=== PATIENT | female | born 1970 | race Caucasian/White ===

== ENCOUNTER 2017-05-16 10:47 | Emergency (ER) | payer BC ==
[2017-05-16] MEDS ORDERED: CYCLOBENZAPRINE HCL 10 MG TABLET PO ONE (11:35)
--- NOTE | 2017-05-16 11:41 | ERNOTE ---
Lower Extremity HPI - General Lower Extremities Pain: leg: right Time Seen by Provider: 05/16/17 11:20 Source: patient, family Exam Limitations: no limitations - Immun/Allergies/Home Medications Immunizations: IMMUNIZATION HX Immunizations Up to Date Yes History of Influenza Vaccine No Allergies/Adverse Reactions: Allergies Allergy/AdvReac Type Severity Reaction Status Date / Time cephalexin Allergy Verified 05/16/17 11:06 Home Medications: HOME MEDICATIONS Cyclobenzaprine HCl [Flexeril] 10 mg PO TID PRN #30 tab 05/16/17 [Last Taken Unknown] carBAMazepine [Tegretol Xr] 400 mg PO BID 05/16/17 [Last Taken Unknown] - History of Present Illness Narrative: Patient has had pain on the left side of her body for a few months. Sometimes the pain is in her legs, sometimes in her arms. Three days ago she started to have pain in her left buttock radiating down her leg. She denies any injury. her leg is also painful to touch and she is concerned that she might have a blood clot in her leg. She has taken tylenol without relieve, took ibuprofen 600mg at 09:30 without relieve. Review of Systems - Review of Systems Constitutional: Absent: recent illness, fever ENT: Absent: nose congestion, sore throat Respiratory: Absent: shortness of breath Cardiology: Absent: chest pain Gastrointestinal/Abdominal: Absent: nausea, vomiting, abdominal pain Genitourinary: Present: no symptoms reported Musculoskeletal: Present: See HPI Skin: Present: no symptoms reported Neurological: Absent: weakness, numbness - Patient's Past Medical History Patient History - Medical: No pertinent hx, Seizures - petit mal as teenager Patient History - Cardiac/Respiratory: No pertinent hx Patient History - Cancer: No Hx of Cancer Patient History - Surgical Procedures: , Hysterectomy, Urology - Social History Smoking Status: Never smoker Have you smoked in the past 12 months: No Do you dip or chew tobacco: No - Immunizations Immunizations Up to Date: Yes History of Influenza Vaccine: No Physical Exam - Physical Exam General Appearance: Present: wd/wn, alert, no apparent distress, obese Respiratory: Present: no respiratory distress, normal breath sounds, no accessory muscle use, lungs clear Cardiovascular/Chest: Present: regular rate, rhythm, no murmur Back Exam: Present: normal inspection, vertebral tenderness - lower lumbar spine and left parapsinal, other - pain on left straight leg raise Extremity Exam: Present: normal inspection, non-tender - patient reports pain on palpation of thigh, normal range of motion, no edema Neurological Exam: Present: alert, oriented, normal mood/affect, no motor/ sensory deficits Skin Exam: Present: normal color, warm/dry ED Progress - Vital Signs Patient's Vital Signs:: I have reviewed the patient's vital signs. Vital Signs: Vital Signs 05/16/17 11:03 Temperature 37.6 C H Pulse Rate 83 Respiratory 14 Rate Blood Pressure 150/101 O2 Sat by Pulse 96 Oximetry - X-Ray X-Ray #1 X-Ray: lumbosacral - disk disease Interpretation: Reviewed by me - CT/Ultrasound CT/Ultrasound Narrative: venous doppler left leg: no DVT - Progress/Reassessment Chief Complaint: Lower Extremity Pain/ Injury Progress Note-Subjective: 05/16/17 12:45 discussed test results with patient and mom Departure Clinical Impression: Sciatica of left side - Departure Disposition: Home self-care Condition: Good Instructions: Sciatica, [id number] Additional Instructions: continue your ibuprofen (200mg) three tablets every six hours as needed for pain call your doctor for follow up Referrals: Roman John DO [Primary Care Provider] - Prescriptions: Cyclobenzaprine HCl [Flexeril] 10 mg PO TID PRN #30 tab PRN Reason: MUSCLE SPASMS
[2017-05-16] MEDS ORDERED: CYCLOBENZAPRINE HCL 10 MG TABLET ONE (11:42)
[2017-05-16 12:52] VITALS: BP 141/90
== END 2017-05-16 12:51 | disposition home or self-care (01) ==
LOC: ER 10:47
DX: M54.32 Sciatica, left side (principal); R56.9 Unspecified convulsions

== ENCOUNTER 2017-07-11 06:39 | Emergency (ER) | payer BC ==
[2017-07-11] MEDS ORDERED: METHYLPREDNISOLONE SOD SUCC/PF 125 MG/2 ML VIAL IV ONE (06:44)
[2017-07-11] MEDS ORDERED: METHYLPREDNISOLONE SOD SUCC/PF 125 MG/2 ML VIAL ONE (06:48)
[2017-07-11] MEDS ORDERED: diphenhydrAMINE HCL 50 MG/ML VIAL IV ONE (07:03)
[2017-07-11] MEDS ORDERED: diphenhydrAMINE HCL 50 MG/ML VIAL ONE (07:12)
--- NOTE | 2017-07-11 07:12 | ERNOTE ---
<GarvinMichael Briceno - Last Filed: 07/11/17 08:11> Allergy Symptoms - ER Date of Service: 07/11/17 Presenting Symptoms: face swelling, throat swelling, trouble breathing Time Seen by Provider: 07/11/17 06:44 Source: patient, EMS notes reviewed Immunizations: IMMUNIZATION HX Immunizations Up to Date Yes History of Influenza Vaccine No Allergies/Adverse Reactions: Allergies cephalexin Allergy (Verified 07/11/17 06:43) Home Medications: HOME MEDICATIONS carBAMazepine [Tegretol Xr] 400 mg PO BID 05/16/17 [Last Taken Unknown] - History of Present Illness Narrative: patient c/o allergic reaction, onset last evening, thinks it may be something she has eatin Timing: Present: constant, getting worse Treatment [employer]:: by [employer] grinder, epinephrine, benadryl Location skin rash/itching: Present: facial, "redness", "hives", other - feels like throat is closing Location swelling: Present: face, lip(s), throat Severity shortness of breath: Present: moderate Severity trouble swallowing/speaking: Present: mild Identified cause?: No - unknown Modifying Factors (Improves): Reports: nothing Modifying Factors (Worsens): Reports: nothing Similar symptoms previously: Yes Review of Systems - Narrative Narrative: unremarkable - Review of Systems Constitutional: Present: See HPI, weakness EYE: Present: no symptoms reported ENT: Present: nose pain, nose congestion, throat swelling Respiratory: Present: shortness of breath Cardiology: Present: palpitations Gastrointestinal/Abdominal: Present: no symptoms reported Genitourinary: Present: no symptoms reported Musculoskeletal: Present: no symptoms reported Skin: Present: no symptoms reported Neurological: Present: no symptoms reported Endocrine: Present: no symptoms reported Hematologic/Lymphatic: Present: no symptoms reported - Narrative Narrative: unremarkable - Patient's Past Medical History Patient History - Medical: No pertinent hx, Seizures Patient History - Cardiac/Respiratory: No pertinent hx Patient History - Cancer: No Hx of Cancer Patient History - Surgical Procedures: , Hysterectomy, Urology Patient History - Other: None LMP (females 10-50): Menopausal - Family History Family History:: no untoward family reactions to anesthesia, no familial bleeding tendencies, no family history of clotting disorders, no family history of premature - Social History Living Situations: home Abuse History: No History of abuse Psych History: No pertinent hx Does anyone smoke in the home?: No Smoking Status: Former smoker Have you smoked in the past 12 months: No Do you dip or chew tobacco: No Patient requests Smoking Cessation Consult: No Initiate information on Smoking Cessation: No Alcohol Use: none Drug Use: none - Immunizations Immunizations Up to Date: Yes History of Influenza Vaccine: No Physical Exam - Physical Exam General Appearance: Present: mild distress Head Exam: Present: normal inspection, no evidence of injury Eye Exam: Normal inspection: bilateral, PERRL: bilateral, EOMI: bilateral Ears, Nose, Throat: Present: sinus pain/drainage, normal pharynx Neck: Present: normal inspection, nontender Respiratory: Present: no respiratory distress, normal breath sounds, no accessory muscle use, chest nontender, lungs clear Cardiovascular/Chest: Present: regular rate, rhythm, no murmur, normal peripheral pulses Peripheral Pulses: N=norm/S=strong/W=weak/B=bound/A=absent: Carotid (R): Normal , Carotid (L): Normal, Radial (R): Normal, Radial (L): Normal, Femoral (R): Normal, Femoral (L): Normal, Dorsalis-pedis (R): Normal, Dorsalis-pedis (L): Normal Gastrointestinal/Abdominal: Present: normal bowel sounds, nontender, nondistended, soft, no organomegaly Extremity Exam: Present: normal inspection, non-tender, normal range of motion, no edema Neurological Exam: Present: alert, oriented, normal mood/affect, no motor/ sensory deficits DTR: N=norm/NB=norm/brisk/A=abs/DD=dull/dimin/HC=hyperactive: Bicep (R): Normal , Bicep (L): Normal, Tricep (R): Normal, Tricep (L): Normal, Knee (R): Normal, Knee (L): Normal, Ankle (R): Normal, Ankle (L): Normal Skin Exam: Present: normal color, warm/dry Lymphatic Exam: Present: no adenopathy ED Progress - Vital Signs Vital Signs: Vital Signs 07/11/17 07/11/17 06:39 06:44 Temperature 37.2 C Pulse Rate 91 91 Respiratory 18 18 Rate Blood Pressure 139/80 139/77 O2 Sat by Pulse 94 96 Oximetry - Progress/Reassessment Chief Complaint: Allergic Reaction - Transfer of Care Physician Sign Out: Kulwant Ng Departure Clinical Impression: Allergic reaction Qualifiers: Encounter type: initial encounter Qualified Code(s): T78.40XA - Allergy, unspecified, initial encounter - Departure Disposition: Home self-care Condition: Good Instructions: Angioedema, [id number] Additional Instructions: call your doctor for follow up Referrals: Roman John DO [Primary Care Provider] - <Alessia Teran - Last Filed: 07/11/17 10:12> Allergy Symptoms - ER Source: patient Immunizations: IMMUNIZATION HX Immunizations Up to Date Yes History of Influenza Vaccine No - History of Present Illness Narrative: Patient states that she ate fish at a [employer] personal property for dinner last night, around 21:00 she started to feel hot, felt like her ear lobes were swollen and had hives on her neck, denies lip swelling, no throat swelling, no shortness of breath. She went to sleep, still had symptoms this morning and went to work, they called EMS Timing: Present: constant Treatment [employer]:: by precision grinder, epinephrine, benadryl Location skin rash/itching: Present: facial, "redness", "hives" Location swelling: Absent: face, lip(s), throat Identified cause?: No Physical Exam - Physical Exam General Appearance: Present: wd/wn, alert, no apparent distress Respiratory: Present: no respiratory distress, normal breath sounds, chest nontender, lungs clear Cardiovascular/Chest: Present: regular rate, rhythm Gastrointestinal/Abdominal: Present: nontender Neurological Exam: Present: alert, oriented, normal mood/affect Skin Exam: Present: normal color, warm/dry. Absent: skin rash ED Progress - Results and Orders Patient's Lab Results:: I have reviewed the patient's lab results. - Vital Signs Patient's Vital Signs:: I have reviewed the patient's vital signs. Vital Signs: Vital Signs 07/11/17 07/11/17 07/11/17 06:39 06:44 07:14 Temperature 37.2 C Pulse Rate 91 91 82 Respiratory 18 18 12 Rate Blood Pressure 139/80 139/77 132/70 O2 Sat by Pulse 94 96 18 L Oximetry 07/11/17 07/11/17 07/11/17 07:39 07:51 08:10 Temperature 36.5 C Pulse Rate 85 78 83 Respiratory 20 22 H 19 Rate Blood Pressure 124/69 137/71 115/62 O2 Sat by Pulse 91 97 92 Oximetry 07/11/17 07/11/17 08:40 09:01 Temperature Pulse Rate 74 87 Respiratory 20 22 H Rate Blood Pressure 124/69 125/68 O2 Sat by Pulse 98 90 Oximetry - EKG EKG: NSR, RBBB - incomplete, other - no prior for comparison EKG read: Interp. by me - Progress/Reassessment Progress Note-Subjective: 07/11/17 09:22 Patient states that she has chest pressure unchanged since her symptoms started , had EKG and CXR, will get lab 07/11/17 10:08 discussed test results with patient, feeling well now, wants to go back to work
[2017-07-11 09:35] LABS: Hematocrit 37.5 % (37.0-47.0); Hemoglobin 12.7 gm/dL (12.5-16.0); Mean Cell Volume 88.9 fl (78-100); Mean Corpuscular Hemoglobin 30.1 pg (27-31); Mean Corpuscular Hgb Conc 33.9 g/dl (32-36); Mean Platelet Volume 9.5 fl (6.0-9.5); Neutrophil % 93.6 % (42-75.0); Platelet Count 193 K/mm3 (150-450); Red Blood Count 4.22 M/mm3 (4.2-5.4); Red Cell Distribution Width 11.7 % (11.5-14.0); White Blood Count 9.6 K/mm3 (4.0-10.5)
[2017-07-11 09:52] LABS: ALT 31 U/L (19-67); AST 20 U/L (0-48); Albumin * 3.8 gm/dl (3.4-5.0); Alkaline Phosphatase * 96 U/L (50-170); Anion Gap 12.6 mmol/L (6.8-13.8); BUN/Creatinine Ratio 22.1 (9.0-21.6); Bilirubin, Total 0.2 mg/dL (0.0-1.1); Blood Urea Nitrogen 17 mg/dL (3-23); Ca. Corrected For Albumin 8.3 mg/dL (8.4-10.2); Calcium * 8.5 mg/dL (7.9-10.9); Carbon Dioxide 28.1 mmol/L (24-32.6); Chloride 104 mmol/L (97-106); Glucose * 146 mg/dL (70-110); Potassium 3.7 mmol/L (3.4-4.6); Sodium 141 mmol/L (132-142); Total Protein 7.2 gm/dL (6.2-8.2); Troponin I Less than 0.017 ng/ml (0.00-0.10)
[2017-07-11 13:33] VITALS: BP 120/75
== END 2017-07-11 10:20 | disposition home or self-care (01) ==
LOC: ER 06:39
DX: T78.40XA Allergy, unspecified, initial encounter (principal); R56.9 Unspecified convulsions; Z87.891 Personal history of nicotine dependence